=== PATIENT | male | born 1980 | race African-American/Black ===

== ENCOUNTER 2021-04-11 09:56 | Emergency (ER) | payer OTHER ==
[~2021-04-11] VITALS: Ht 182.9 cm; Wt 109.4 kg
--- NOTE | 2021-04-11 10:14 | PHYS DOC ---
Past Medical History Past Medical History: Hypertension Additional Past Medical Histor: NEW ONSET SEIZURES 04/10/21 Past Surgical History: No Surgical History Smoking Status: Current Every Day Smoker Alcohol Use: Heavy Additional Information: DRINKS EVERY OTHER DAY,SHOTS AND BEER General Adult EDM: Chief Complaint: SEIZURE HPI: HPI: 41 yo AA M PMH HTN (noncompliant with medications x2 years) presents to the ED brought in by EMS after called 911 (patient consents to his/her/their knowledge and involvement in pts' medical care), with concern for new onset seizure at 9:20am today. Pt c/o headache /, nonradiating, sharp to the top of his head that started immediately after waking up on the floor. Patient reports he had just eaten [employer] for breakfast. reports pt was sitting in a chair when he started breathing hard, snoring (h/o h/o KATHY) and slid out of the chair, landing face forward on his right side, while shaking both arms and foaming at the mouth. From symptom onset to resolution of symptoms with returning back to baseline mental status per reports 5 to 7 minutes total duration. Patient denies any active chest pain. Is a tobacco smoker. Drinks about 4 shots of hard liquor daily, along with a few beers but no history of alcohol withdrawal, tremors or seizures. Denies any cocaine or methamphetamine abuse. Has no routine primary care physician. BP is normally 140/90. Uncle w/hx of CAD in 50/60's. No personal or family history of AAA, AAD, CTD (ehlos dan[place] or marfans), cardiac arrhythmias (need for AICD), sudden or unexplainable (under 50 years of age or with exertion), or clotting disorders. Patient reports he has been taking "zydenafil" [id number]-[id number] for the past month and a half for natural "male enhancement." Review of Systems: Review of Systems: Constitutional: Denies fever or chills. [] Eyes: Denies change in visual acuity. [] HENT: Denies nasal congestion or sore throat. [] Respiratory: Denies cough or shortness of breath. [] Cardiovascular: Denies chest pain or edema. [] GI: Denies abdominal pain, nausea, vomiting, bloody stools or diarrhea. [] : Denies dysuria or saddle anesthesia Musculoskeletal: Denies back pain or joint pain. [] Integument: Denies rash or diaphoresis Neurologic: Denies midline neck pain, focal weakness or sensory changes. [] Endocrine: Denies polyuria or polydipsia. [] Lymphatic: Denies swollen glands. [] Psychiatric: Denies depression or anxiety. [] Heart Score: C/O Chest Pain: No Risk Factors: Risk Factors: DM, Current or recent (<one month) smoker, HTN, HLP, family history of CAD, obesity. Risk Scores: Score 0 - 3: 2.5% MACE over next 6 weeks - Discharge Home Score 4 - 6: 20.3% MACE over next 6 weeks - Admit for Clinical Observation Score 7 - 10: 72.7% MACE over next 6 weeks - Early Invasive Strategies Current Medications: Current Medications Medications (Trade) Dose Ordered Sig/Ministerio Start Time Stop Time Status Last Admin Dose Admin Sodium Chloride 1,000 ml @ 1,000 mls/hr Q1H 04/11/21 10:30 04/11/21 11:29 Allergies: Allergies: Allergies Coded Allergies Type Severity Reaction Last Updated Verified No Known Drug Allergies 04/11/21 No Physical Exam: PE: Constitutional: Well developed, non-toxic appearance, hypertensive HENT: Normocephalic, atraumatic, no signs of head trauma, normal mucous membranes with no intraoral lacerations or signs of trauma Eyes: PERRLA, EOMI, conjunctiva normal, no discharge. Neck: Normal range of motion, supple, Cardiovascular: S1/2 present, regular rhythm Lungs & Thorax: Speaking in full sentences, bilateral equal chest rise, no tachypnea or increased work of breathing Abdomen: soft, no tenderness, no incontinence Skin: Warm, dry, no erythema, no rash. [] Back: No midline step-offs or tenderness, no CVA tenderness. [] Extremities: No tenderness, no cyanosis, no lower extremity edema Neurologic: GCS 15, alert and oriented X 3, normal motor function, normal sensory function, no focal deficits noted. [] Psychologic: Affect normal, judgement normal, mood normal. [] Nexus C-spine criteria are negative: There is no post midline tenderness, the patient is not intoxicated, there is a normal level of alertness, there are no focal neurologic deficits and there are no distracting injuries. Current Patient Data: Vital Signs: Vital Signs Date Time Temp Pulse Resp B/P (MAP) Pulse Ox O2 Delivery O2 Flow Rate FiO2 04/11/21 10:03 98.5 79 20 191/112 (138) 96 Room Air 98.5 EKG: EK sinus rhythm at 74 bpm, left axis deviation, QTC 471, concern for hyperacute T waves V1 V2 and V3 with T wave inversion V3, V4, V5, V6, 2, 3 and aVF, no active chest pain, no prior EKG for comparison 1156 sinus rhythm 80 bpm, with limb lead discordance, similar T wave inversion and ST segment pattern seen on prior EKG, patient with no active chest pain Radiology/Procedures: Radiology/Procedures: []IMAGING REPORT Signed PATIENT: CARLOS ESCALANTE ACCOUNT: [id number] : 1980 LOCATION: ER AGE: 41 SEX: M EXAM STATUS: PRE ER ORD. PHYSICIAN: FRANCE OLIVER DO REASON: seizure PROCEDURE: CT HEAD WO CONTRAST CT head without contrast dated 04/11/2021. No comparison available. CLINICAL INDICATION: Seizure. TECHNIQUE: Contiguous axial imaging the head was performed from skull base to vertex. No contrast administered. One or more of the following individualized dose reduction techniques were utilized for this examination: 1. Automated exposure control 2. Adjustment of the mA and/or kV according to patient size 3. Use of iterative reconstruction technique FINDINGS: Ventricles and sulci are within normal limits for age. No midline shift. There is some abnormal hyperdensity within the bilateral sylvian fissures with possible small amount of high density layering in the interpeduncular cistern. There is a vague area of hyperdensity near the suprasellar cistern on axial image 10. There is also some hyperdensity in the fourth ventricle and near the foramen of Enrique. No extra-axial collection. There is questionable mild diffuse brain edema with effacement of the sulci. Ambient cisterns are ill-defined. Prominent mucus retention cyst left maxillary sinus. The visualized paranasal sinuses and mastoid air cells are otherwise clear. No apparent calvarial abnormality. IMPRESSION: 1. There is hyperdense material in the bilateral sylvian fissures with possible small amount of hemorrhage at the interpedicular cistern and small amount of hemorrhage at the foramen of Kyle and fourth ventricle. Findings raise the question of ruptured aneurysm. 2. Ill definition of the sulci and ambient cisterns raising the question of subtle brain edema. No significant midline shift. Results discussed with ER physician at approximately 11:10 AM on the day of the study. Electronically signed by: Delano Anaya MD (04/11/2021 11:13 AM) [id number] DICTATED and SIGNED BY: DELANO ANAYA MD DATE: 04/11/21 [id number] IMAGING REPORT Signed PATIENT: CARLOS ESCALANTE ACCOUNT: [id number] : 1980 LOCATION: ER AGE: 41 SEX: M EXAM STATUS: PRE ER ORD. PHYSICIAN: FRANCE OLIVER DO REASON: seizure PROCEDURE: CT HEAD WO CONTRAST CT head without contrast dated 04/11/2021. No comparison available. CLINICAL INDICATION: Seizure. TECHNIQUE: Contiguous axial imaging the head was performed from skull base to vertex. No contrast administered. One or more of the following individualized dose reduction techniques were utilized for this examination: 1. Automated exposure control 2. Adjustment of the mA and/or kV according to patient size 3. Use of iterative reconstruction technique FINDINGS: Ventricles and sulci are within normal limits for age. No midline shift. There is some abnormal hyperdensity within the bilateral sylvian fissures with possible small amount of high density layering in the interpeduncular cistern. There is a vague area of hyperdensity near the suprasellar cistern on axial image 10. There is also some hyperdensity in the fourth ventricle and near the foramen of Enrique. No extra-axial collection. There is questionable mild diffuse brain edema with effacement of the sulci. Ambient cisterns are ill-defined. Prominent mucus retention cyst left maxillary sinus. The visualized paranasal sinuses and mastoid air cells are otherwise clear. No apparent calvarial abnormality. IMPRESSION: 1. There is hyperdense material in the bilateral sylvian fissures with possible small amount of hemorrhage at the interpedicular cistern and small amount of hemorrhage at the foramen of Kyle and fourth ventricle. Findings raise the question of ruptured aneurysm. 2. Ill definition of the sulci and ambient cisterns raising the question of subtle brain edema. No significant midline shift. Results discussed with ER physician at approximately 11:10 AM on the day of the study. Electronically signed by: Delano Anaya MD (04/11/2021 11:13 AM) [id number] DICTATED and SIGNED BY: DELANO ANAYA MD DATE: 04/11/21 [id number] IMAGING REPORT Signed PATIENT: CARLOS ESCALANTE ACCOUNT: [id number] : 1980 LOCATION: ER AGE: 41 SEX: M EXAM STATUS: REG ER ORD. PHYSICIAN: FRANCE OLIVER DO REASON: headache, concern for anuerysm, sah?? PROCEDURE: CT ANGIOGRAPHY HEAD AND NECK CTA head and neck with contrast dated 04/11/2021. Comparison to noncontrast head CT dated same day. Clinical data indication: Headaches. Possible subarachnoid hemorrhage on recent noncontrast head CT. TECHNIQUE: Contiguous axial imaging the head and neck performed following intravenous and demonstration of 75 cc Omnipaque 300. Study was performed as dedicated CTA with thin cut coronal and sagittal MIPS reconstructions and 3-D rotational reconstructions. One or more of the following individualized dose reduction techniques were utilized for this examination: 1. Automated exposure control 2. Adjustment of the mA and/or kV according to patient size 3. Use of iterative reconstruction technique Carotid Stenosis calculations for CT, MR, and conventional angiography are based upon measurements of the distal ICA diameter in accordance with the NASCET methodology. Stenosis calculations for carotid ultrasound studies are derived from validated velocity criteria which are known to correlate with the NASCET methodology. FINDINGS: Study is somewhat limited due to motion artifact and timing of contrast bolus. Ovoid focus of contrast enhancement extending off the inferior margin of the anterior communicating artery measures 0.5 x 0.7 x 0.9 cm. This extends into the suprasellar cistern. The anterior cerebral arteries are small and irregular in appearance but appear to be grossly patent. MCA branches are also somewhat small and irregular in appearance but otherwise patent. No additional aneurysm. The petrous and cavernous internal carotid arteries are grossly patent. There is possible mild narrowing of the supraclinoid segment on the left. The internal carotid arteries and carotid bifurcations are patent. The bilateral common carotid arteries are patent. No significant calcific plaque. Bilateral subclavian arteries are grossly patent. Vertebral arteries are symmetric and patent to the skull base. No intimal flap. There is some mild irregularity of the distal vertebrals without significant narrowing. The intradural vertebrals are patent. Basilar artery is well formed. Bilateral LDR NURSE are patent. Previously described subarachnoid hemorrhage is not well appreciated due to the presence of contrast material. There is likely been little interval change. No midline shift. Ventricles are stable in caliber. Prominent mucus retention cyst of the left maxillary sinus. No signal soft tissue abnormality. Limited images of the lung apices are clear. IMPRESSION: 1. 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 This is likely the source of subarachnoid hemorrhage and intraventricular hemorrhage. No active contrast leak is apparent on this exam. 2. There is diffuse irregularity and narrowing of the intracranial vessels which could be related to artifact, vasospasm or underlying vasculitis. 3. No evidence of hemodynamically significant proximal stenosis. Results discussed with ER physician at approximately 12:58 PM on the day of study. Electronically signed by: Delano Anaya MD (04/11/2021 1:02 PM) [id number] DICTATED and SIGNED BY: DELANO ANAYA MD DATE: 04/11/21 [id number] 0 Course & Med Decision Making: Course & Med Decision Making Pertinent Labs and Imaging studies reviewed. (See chart for details) Patient presented with new onset seizure and headache that developed post seizure once pt returned to baseline mental status. Concern for atraumatic subarachnoid hemorrhage with anterior communicating artery aneurysm. I discussed these findings with radiology who suspects patient's aneurysm clotted off. INR is 1.2. H&H stable. Patient also with uncontrolled hypertension (no end organ damage-no effusions, elevated trop/renal failure or neuro deficits). Did not respond to hydralazine bolus and was started on nicardipine. UDS negative. U/A with proteinuria and glucose, serum glucose 179. CK 556. Patient excepted by [facility] for higher level of care, neuro IR to discuss options for vascular clipping. Accepted by hospitalist Dr. Carlee Rae who recommended per neuro IR, SBP goal 140. Rapid covid and LA pending. Pt stable at time of transfer and agrees with this plan. Critical Care: Authorized and Performed by: France Oliver DO Total critical care time: approximately 90 minutes Due to a high probability of clinically significant, life threatening deterioration, the patient required my highest level of preparedness to intervene emergently and I personally spent this critical care time directly and personally managing the patient. This critical care time included obtaining a history; examining the patient; pulse oximetry; ventilator management if necessary; ordering and review of studies; arranging urgent treatment with development of a management plan; evaluation of patient's response to treatment; frequent reassessment; discussion with patient/family; and, discussions with other providers. This critical care time was performed to assess and manage the high probability of imminent, life-threatening deterioration that could result in multi-organ failure. It was exclusive of separately billable procedures and treating other patients and teaching time. Please see MDM section and the rest of the note for further information on patient assessment and treatment. Dragon Disclaimer: Dragon Disclaimer: This electronic medical record was generated, in whole or in part, using a voice recognition dictation system. 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 Carlee Gautam) Condition: CRITICAL FRANCE OLIVER DO Apr 11, 2021 10:14
[2021-04-11 10:24] LABS: BASO # 0.1 x10^3/uL (0.0-0.2); BASO % 1 % (0-3); EOS # 0.1 x10^3/uL (0.0-0.7); EOS % 2 % (0-3); HEMATOCRIT 44.7 % (39.0-53.0); LYMPH # 1.7 x10^3/uL (1.0-4.8); LYMPH % 21 % (24-48); MEAN CORPUSCULAR HEMOGLOBIN 29 pg (25-35); MEAN CORPUSCULAR HGB CONC 33 g/dL (31-37); MEAN CORPUSCULAR VOLUME 87 fL (79-100); MONO # 0.7 x10^3/uL (0.0-1.1); MONO % 9 % (0-9); NEUT # 5.4 x10^3/uL (1.8-7.7); NEUT % 67 % (31-73); PLATELET COUNT 253 x10^3/uL (140-400); RED BLOOD COUNT 5.13 x10^6/uL (4.30-5.70); RED CELL DISTRIBUTION WIDTH 15.5 % (11.5-14.5); WHITE BLOOD COUNT 8.1 x10^3/uL (4.0-11.0)
[2021-04-11] MEDS ORDERED: levETIRAcetam 1,000 MG in IV DEXTROSE 5% 100ML 100 ML IV ONE (10:30)
[2021-04-11] MEDS ORDERED: IV NORMAL SALINE 1000ML BAG 1,000 ML IV SCH (10:30)
[2021-04-11 10:35] LABS: CREATININE 1.3 mg/dL (0.7-1.3); GFR 60.5; POTASSIUM 3.1 mmol/L (3.5-5.1)
--- NOTE | 2021-04-11 10:41 | RAD ---
Single view chest dated 04/11/2021: No comparison available. Clinical Indication: Seizure. Findings: Single upright portable exam of the chest was performed. Heart size and mediastinal contours are with in normal limits given technique. The lungs are clear without evidence of focal consolidation. Vascul ar interstitium is within normal limits. Impression:: Negative portable chest. Electronically signed by: Delano Anaya MD (04/11/2021 10:39 AM) [id number]
[2021-04-11 10:42] LABS: ALBUMIN 3.8 g/dL (3.4-5.0); ALBUMIN/GLOBULIN RATIO 1.1 (1.0-1.7); MAGNESIUM 1.9 mg/dL (1.8-2.4); TOTAL BILIRUBIN 0.7 mg/dL (0.2-1.0); TOTAL PROTEIN 7.3 g/dL (6.4-8.2)
[2021-04-11] MEDS ORDERED: MULTIVIT INFUSN,ADULT 4,VIT K 10 ML, THIAMINE INJ 100 MG, FOLIC ACID INJ 1 MG in IV NOR... IV ONE (11:00)
--- NOTE | 2021-04-11 11:15 | RAD ---
CT head without contrast dated 04/11/2021. No comparison available. CLINICAL INDICATION: Seizure. TECHNIQUE: Contiguous axial imaging the head was performed from skull base to vertex. No contrast administered. One or more of the following individualized dose reduction techniques were utilized for this examinat ion: 1. Automated exposure control 2. Adjustment of the mA and/or kV according to patient size 3. Use of iterative reconstruction technique FINDINGS: Ventricles and sulci are within normal limits for age. No midline shift. There is some abnormal hyper density within the bilateral sylvian fissures with possible small amount of high density layering in the interpeduncular cistern. There is a vague area of hyperdensity near the suprasellar cistern on ax ial image 10. There is also some hyperdensity in the fourth ventricle and near the foramen of Enrique. No extra-axial collection. There is questionable mild diffuse brain edema with effacement of the sulc i. Ambient cisterns are ill-defined. Prominent mucus retention cyst left maxillary sinus. The visualized paranasal sinuses and mastoid air cells are otherwise clear. No apparent calvarial abnormality. IMPRESSION: 1. There is hyperdense material in the bilateral sylvian fissures with possible small amount of hemor rhage at the interpedicular cistern and small amount of hemorrhage at the foramen of Kyle and fourth ventricle. Findings raise the question of ruptured aneurysm. 2. Ill definition of the sulci and ambient cisterns raising the question of subtle brain edema. No si gnificant midline shift. Results discussed with ER physician at approximately 11:10 AM on the day of the study. Electronically signed by: Delano Anaya MD (04/11/2021 11:13 AM) [id number]
[2021-04-11] MEDS ORDERED: CONTRAST GIVEN. MC PRN (11:30)
[2021-04-11] MEDS ORDERED: IOHEXOL 300 MG/ML 100ML VIAL. IV ONE (11:30)
[2021-04-11] MEDS ORDERED: hydrALAZINE 20 MG/ML VIAL. IVP ONE (11:30)
[2021-04-11] MEDS ORDERED: DEXAMETHASONE SOD PHOS 20 MG/5 ML VIAL. IV ONE (11:30)
[2021-04-11] MEDS ORDERED: diphenhydrAMINE 50 MG/ML VIAL IVP ONE (11:30)
[2021-04-11] MEDS ORDERED: PROCHLORPERAZINE 10 MG/2 ML VIAL. IV ONE (11:30)
[2021-04-11 11:36] LABS: BILIRUBIN,URINE NEGATIVE (NEG); CLARITY,URINE CLEAR; COLOR,URINE AMBER; NITRITE,URINE NEGATIVE (NEG); PROTEIN,URINE 100 mg/dL (NEG-TRACE); UROBILINOGEN,URINE 0.2 mg/dL (0.2 mg/dL)
--- NOTE | 2021-04-11 11:37 | EKG ---
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
[2021-04-11 11:45] LABS: BACTERIA,URINE 0 /HPF (0-FEW); BARBITURATES NEG (NEG); BENZODIAZEPINES NEG (NEG); CANNABINOIDS NEG (NEG); COCAINE NEG (NEG); METHADONE NEG (NEG); OPIATES NEG (NEG); PHENCYCLIDINE NEG (NEG); RBC,URINE OCC /HPF (0-2)
[2021-04-11 11:47] LABS: AMPHETAMINE/METHAMPHETAMINE NEG (NEG)
[2021-04-11 11:57] LABS: PROTHROMBIN TIME PATIENT 14.4 SEC (11.7-14.0)
--- NOTE | 2021-04-11 12:11 | EKG ---
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
[2021-04-11] MEDS ORDERED: ONDANSETRON PF 4 MG/2 ML VIAL. ONE (12:59)
--- NOTE | 2021-04-11 13:04 | RAD ---
CTA head and neck with contrast dated 04/11/2021. Comparison to noncontrast head CT dated same day. Clinical data indication: Headaches. Possible subarachnoid hemorrhage on recent noncontrast head CT. TECHNIQUE: Contiguous axial imaging the head and neck performed following intravenous and demonstration of 75 cc Omnipaque 300. Study was performed as dedicated CTA with thin cut coronal and sagittal MIPS reconstr uctions and 3-D rotational reconstructions. One or more of the following individualized dose reduction techniques were utilized for this examinat ion: 1. Automated exposure control 2. Adjustment of the mA and/or kV according to patient size 3. Use of iterative reconstruction technique Carotid Stenosis calculations for CT, MR, and conventional angiography are based upon measurements of the distal ICA diameter in accordance with the NASCET methodology. Stenosis calculations for carotid ultrasound studies are derived from validated velocity criteria which are known to correlate with th e NASCET methodology. FINDINGS: Study is somewhat limited due to motion artifact and timing of contrast bolus. Ovoid focus of contrast enhancement extending off the inferior margin of the anterior communicating a rtery measures 0.5 x 0.7 x 0.9 cm. This extends into the suprasellar cistern. The anterior cerebral a rteries are small and irregular in appearance but appear to be grossly patent. MCA branches are also somewhat small and irregular in appearance but otherwise patent. No additional aneurysm. The petrous and cavernous internal carotid arteries are grossly patent. There is possible mild narrow ing of the supraclinoid segment on the left. The internal carotid arteries and carotid bifurcations a re patent. The bilateral common carotid arteries are patent. No significant calcific plaque. Bilateral subclavian arteries are grossly patent. Vertebral arteries are symmetric and patent to the skull base. No intimal flap. There is some mild irregularity of the distal vertebrals without signifi cant narrowing. The intradural vertebrals are patent. Basilar artery is well formed. Bilateral TOOLROOM MACHINIST ar e patent. Previously described subarachnoid hemorrhage is not well appreciated due to the presence of contrast material. There is likely been little interval change. No midline shift. Ventricles are stable in lul iber. Prominent mucus retention cyst of the left maxillary sinus. No signal soft tissue abnormality. Limite d images of the lung apices are clear. IMPRESSION: 1. There is an aneurysm of the anterior communicating artery that measures up to 9 mm maximum dimensi on. This is likely the source of subarachnoid hemorrhage and intraventricular hemorrhage. No active c ontrast leak is apparent on this exam. 2. There is diffuse irregularity and narrowing of the intracranial vessels which could be related to artifact, vasospasm or underlying vasculitis. 3. No evidence of hemodynamically significant proximal stenosis. Results discussed with ER physician at approximately 12:58 PM on the day of study. Electronically signed by: Delano Anaya MD (04/11/2021 1:02 PM) [id number]
[2021-04-11] MEDS ORDERED: HYDROmorphone 2 MG/ML VIAL IVP ONE (13:30)
[2021-04-11] MEDS ORDERED: ONDANSETRON PF 4 MG/2 ML VIAL. IVP ONE (13:30)
[2021-04-11 14:43] VITALS: BP 170/82
== END 2021-04-11 14:59 | disposition short-term general hospital (02) ==
LOC: ER 09:56
DX: I60.9 Nontraumatic subarachnoid hemorrhage, unspecified (principal); I10 Essential (primary) hypertension; I67.1 Cerebral aneurysm, nonruptured; F17.200 Nicotine dependence, unspecified, uncomplicated
CPT/HCPCS: 36415; 70450; 70496; 70498; 71045; 80053; 80307; 81001; 82550; 83735; 84484; 85025; 85610; 85730; 93005; 96365; 96366; 96367; 96368; 96375; 99291; 99292; J0360; J0780; J1100; J1170; J1200; J1953; J2405; J3411; J3490; J7030; J7050; J7060; Q9967